=== PATIENT | female | born 1950 | race Caucasian/White ===

== ENCOUNTER → 2020-10-04 08:36 | Outpatient (CLI) | payer MEDICARE, SELFPAY ==
--- NOTE | ~2020-10-04 | XR_ITS ---
EXAMINATION: XR thoracic spine 3V EXAM DATE: 10/04/2020 09:08 INDICATION: Low back pain. Assess pain pump catheter tip. TECHNIQUE: Frontal and lateral projections of the thoracic spine as well as lateral swimmers projecti on of the upper thoracic spine for interpretation. There is no prior study for comparison. FINDINGS: There is 2 mm metallic focus projecting over the spinal canal, indicated on both frontal a nd lateral projections at the T9 level. This is most likely at the tip of the pain pump, although the catheter tubing is not well-visualized. . There are sternotomy wires. Mild to moderate thoracic di sc disease. Paraspinal soft tissue is unremarkable. IMPRESSION: Probable identification pain pump tip at T9 level. Mild to moderate thoracic spondylosis . Reviewed, dictated and finalized at location A. 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 Mild to moderat e thoracic spondylosis.
--- NOTE | ~2020-10-04 | XR_ITS ---
EXAMINATION: XR lumbar spine 2-3V EXAM DATE: 10/04/2020 09:08 INDICATION: Low back pain. Assess pain pump tip level. TECHNIQUE: Lumber spine frontal, lateral, lateral L5-S1 projections for interpretation. There is no prior study for comparison. FINDINGS: There is moderate lumbar dextroscoliosis. The L1 and L2 vertebral bodies are partially fus ed and have lost more than half of their heights, more on the right side, causing or contributing to patient's dextroscoliosis. Mild diffuse loss of other lumbar vertebral body heights. Moderate diffuse lumbar disc disease. Moderate aortic arterial sclerosis. Paraspinal soft tissue is unremarkable. The re is advanced lumbar facet arthropathy. Sacroiliac lines appear intact. Pain pump catheter identified over the right side of the subcutaneous tissues. Metallic marker at the catheter tip is at T9 level, has been indicated for your review. IMPRESSION: 1. Partially fused, and compressed L1-2 vertebral bodies causing or contributing to moderate dextros coliosis. 2. Advanced lumbar facet arthropathy. 3. Moderate disc disease. 4. Pain pump tip marker at T9 level. Reviewed, dictated and finalized at location A. ILATION WORKER IMPRESSION: 1. Partially fused, and compressed L1-2 vertebral bodies causing or contributi ng to moderate dextroscoliosis. 2. Advanced lumbar facet arthropathy. 3. Moderate disc disease. 4. Pain pump tip marker at T9 level.
== END ==
PROVIDERS: Visit Provider Nurse Practitioner Family
DX: M54.5 Low back pain (principal); M41.86 Other forms of scoliosis, lumbar region; M43.06 Spondylolysis, lumbar region; M51.9 Unspecified thoracic, thoracolumbar and lumbosacral intervertebral disc disorder; Z97.8 Presence of other specified devices; M47.814 Spondylosis without myelopathy or radiculopathy, thoracic region
CPT/HCPCS: 72072; 72100

== ENCOUNTER → 2020-11-15 07:52 | Outpatient (CLI) | payer MEDICARE, SELFPAY ==
--- NOTE | ~2020-11-15 | MR_ITS ---
EXAMINATION: MR lumbar spine wo con EXAM DATE: 11/15/2020 08:42 INDICATION: Low back pain. Bilateral leg weakness. Symptoms for years. Pain pump. TECHNIQUE: Multi-sequential, multiplanar MR images of the lumbar spine were obtained without contrast . Sagittal T1, T2, T2 fat saturation images. Axial T2 weighted images. Correlation is made to lumba r x-ray 10/04/2020. FINDINGS: There is pseudoarthrosis of the L1 and L2 vertebral bodies with moderate to severe loss of the vertebral body heights at the L1-2 endplates. There is edema within both of these vertebral kaleb s. Focal region of signal within the widened disc space is most likely gas which should exclude acute discitis/osteomyelitis. These changes may have been sequela from prior episode of treated discitis/o steomyelitis. There is no evidence of paraspinal fluid collection. The posterior aspects of these joaquina tebral L1-2 endplates do project into the spinal canal, contributing to the moderate to severe centra l canal stenosis. Moderate to severe disc disease at T11-12, L2-3 and L3-4, moderate at the 2 levels below and L1-2. Co nus medullaris is being indented anteriorly from disc bulge at T11-12, with mild to moderate central canal stenosis at that level. No conus medullaris edema suspected, no acute cord compression. There i s 3 mm retrolisthesis L2 on L3 and L3 on L4. There is 5 mm anterolisthesis L5 on S1. Mild to moderate thoracolumbar scoliosis. Level by level evaluation: T11-12: There is a moderate diffuse disc bulge. Facet arthropathy: Mild to moderate. Neural foraminal stenosis: Moderate left, mild to moderate right. Central canal stenosis: Mild to moderate. T12-L1: There is a mild to moderate diffuse disc bulge. Facet arthropathy: Moderate. Neural foraminal stenosis: Moderate bilateral. Central canal stenosis: Mild to moderate. L1-L2: Endplates project posteriorly. Facet arthropathy: Moderate. Neural foraminal stenosis: Severe right, moderate to severe left. Central canal stenosis: Severe, nerve root crowding. L2-L3: There is a moderate diffuse disc bulge. Facet arthropathy: Mild to moderate. Neural foraminal stenosis: Moderate left, mild to moderate right. Central canal stenosis: Moderate. L3-L4: There is a mild to moderate diffuse disc bulge. Facet arthropathy: Moderate. Neural foraminal stenosis: Moderate left, mild to moderate right. Central canal stenosis: Moderate. L4-L5: There is a moderate diffuse disc bulge. Facet arthropathy: Moderate to severe. Neural foraminal stenosis: Moderate bilateral. Central canal stenosis: Moderate to severe. L5-S1: There is a moderate diffuse disc bulge. Facet arthropathy: Moderate to severe. Neural foraminal stenosis: Severe right, moderate to severe left. Central canal stenosis: Moderate. IMPRESSION: 1. L1-2 appearance most likely severe arthritis, could be from prior episode of discitis/osteomyelit is with resultant pseudoarthrosis. Disc space gas should exclude acute infection. Severe central lily l stenosis at that level. 2. Less severe spondylosis other levels. Reviewed, dictated and finalized at location A. IMPRESSION: 1. L1-2 appearance most likely severe arthritis, could be from prior episode o f discitis/osteomyelitis with resultant pseudoarthrosis. Disc space gas should exclude acute infection. Severe central canal stenosis at that level. 2. Less severe spondylosis other levels.
== END ==
PROVIDERS: Visit Provider Nurse Practitioner Family
DX: M54.5 Low back pain (principal); M47.816 Spondylosis without myelopathy or radiculopathy, lumbar region
CPT/HCPCS: 72148

== ENCOUNTER → 2021-05-28 11:08 | Outpatient (CLI) | payer MEDICARE, SELFPAY ==
--- NOTE | ~2021-05-28 | XR_ITS ---
EXAMINATION: XR knee RT 2V EXAM DATE: 05/28/2021 11:30 INDICATION: Pain in left knee, pain in right knee. TECHNIQUE: Frontal and lateral projections of the right knee. Correlation is made to contralateral k nee same date. FINDINGS: There is severe patellofemoral and tibial tibiofemoral compartment primary osteoarthritis. The lateral compartment joint space appears much more preserved. This is likely contributing to the varus deformity, shape of the knee. There are no acute fractures identified. Scattered popliteal, dis laura femoral arterial sclerosis. IMPRESSION: 1. Severe right knee osteoarthritis. 2. Genu varum. Reviewed, dictated and finalized at location B.
--- NOTE | ~2021-05-28 | XR_ITS ---
EXAMINATION: XR knee LT 2V EXAM DATE: 05/28/2021 11:30 INDICATION: Pain in left knee, pain in right knee TECHNIQUE: Frontal and lateral projections of the left knee obtained standing. Correlation is made t o contralateral knee same date. FINDINGS: There is moderate to severe patellofemoral and medial tibial femoral compartment primary os teoarthritis. There is also 5 to 10 mm of lateral displacement of the femoral condyles with respect to the tibial plateau indicating laxity of the joint capsule. There is varus deformity at the knee mona int. There may be small joint effusion. There are no acute fractures identified. Scattered popliteal arterial sclerosis. IMPRESSION: 1. Moderate to severe left knee osteoarthritis. 2. Capsular laxity with mild lateral subluxation tibial plateau with respect to the femoral condyles . 3. Genu varum. Reviewed, dictated and finalized at location B. IMPRESSION: 1. Moderate to severe left knee osteoarthritis. 2. Capsular laxity with mild lateral subluxation tibial plateau with respect t o the femoral condyles. 3. Genu varum.
== END ==
PROVIDERS: PCP Nurse Practitioner Gerontology; Visit Provider Nurse Practitioner Family
DX: M25.562 Pain in left knee (principal); M25.561 Pain in right knee; M17.0 Bilateral primary osteoarthritis of knee; M21.162 Varus deformity, not elsewhere classified, left knee; M21.161 Varus deformity, not elsewhere classified, right knee
CPT/HCPCS: 73560

== ENCOUNTER → 2022-11-06 08:46 | Outpatient (CLI) | payer MEDICARE, SELFPAY ==
--- NOTE | ~2022-11-06 | MR_ITS ---
EXAMINATION: MR lumbar spine wo con DATE: 11/06/2022 09:27 INDICATION: Lumbar radiculopathy. Chronic low back pain. TECHNIQUE: Magnetic resonance imaging (MRI) of the lumbar spine was performed without intravenous con trast. COMPARISON: Lumbar spine MRI 11/15/2020, radiographs 10/04/20 FINDINGS: There is 19 degrees levoscoliosis of thoracolumbar spine and 24 degrees dextroscoliosis of lumbar spine. There is interbody fusion and focal kyphosis at L1-L2 with bone volume loss. There is w idening of the disc space at T12-L1 with obliteration of the disc and fluid in the disc space. There is 4 mm anterolisthesis of L5 on S1. There is severely decreased disc height at T11-T12, L2-L3, and L 3-L4, moderately decreased disc at L4-L5, and severely decreased disc height at L5-S1 with endplate r emodeling. There is ligamentum flavum hypertrophy at the disc levels in lumbar spine. The following d isc levels are specifically discussed: T11-T12: The disc is bulging. There is mild bilateral facet joint osteoarthritis. There is moderate b ilateral neural foraminal stenosis. There is moderate central canal stenosis with indentation of the spinal cord. T12-L1: The disc is bulging. There is severe bilateral facet joint osteoarthritis. There is severe bi lateral neural foraminal stenosis. There is moderate central canal stenosis. L1-L2: There is severe bilateral facet joint osteoarthritis. There is severe right and moderate left neural foraminal stenosis. There is severe central canal stenosis. L2-L3: The disc is bulging and has an annular fissure. There is severe bilateral facet joint osteoart hritis. There is mild right and moderate left neural foraminal stenosis. There is mild central canal stenosis. L3-L4: The disc is bulging and has an annular fissure. There is severe bilateral facet joint osteoart hritis. There is mild right and moderate left neural foraminal stenosis. There is mild central canal stenosis. L4-L5: The disc is bulging and has an annular fissure. There is severe bilateral facet joint osteoart hritis. There is moderate bilateral neural foraminal stenosis. There is mild central canal stenosis. L5-S1: The disc is bulging and has an annular fissure. There is severe bilateral facet joint osteoart hritis. There is moderate right and mild left neural foraminal stenosis. There is mild central canal stenosis. IMPRESSION: 1. Severe lumbar and lower thoracic spondylosis. 2. Pseudoarthrosis at T12-L1. 3. Scoliosis. Reviewed, dictated and finalized at location A.
== END ==
PROVIDERS: Visit Provider Nurse Practitioner Family
DX: M47.26 Other spondylosis with radiculopathy, lumbar region (principal); M47.814 Spondylosis without myelopathy or radiculopathy, thoracic region; M41.9 Scoliosis, unspecified
CPT/HCPCS: 72148

== ENCOUNTER 2024-08-16 10:07 | Outpatient (CLI) | payer MEDICARE, SELFPAY ==
--- NOTE | ~2024-08-16 | XR_ITS ---
[id number] Ordering provider: Emily Mcfarland, AUTO ENGINE MECHANIC-C History: . L knee pain . Comparison: None. FINDINGS: BONES: No acute fracture or dislocation. JOINT SPACES: Narrowing of the medial compartment. Marginal osteophytes in the patella with narrowing of the patellofemoral joint. SOFT TISSUES: Vascular calcifications. Minimal fluid in the suprapatellar bursa. IMPRESSION: No acute osseous abnormality left knee. Severe osteoarthritic changes. Reviewed, dictated and finalized at location A. NGER UP SOLDERING MACHINE
--- NOTE | ~2024-08-16 | XR_ITS ---
EXAMINATION: XR ankle LT 2V, XR foot LT 2V DATE: 08/16/2024 11:22 INDICATION: Left foot and ankle pain post fall TECHNIQUE: 1. Anteroposterior and lateral view of the left ankle were obtained. 2. Dorsoplantar and lateral views of the left foot were obtained. COMPARISON: None. FINDINGS: Diffuse osteopenia. Transverse fractures across the distal left fibular metadiaphysis and distal left tibial metaphysis. Fibular fracture remains nondisplaced with 10-15 degrees medial and posterior ang ulation. One-2 cortical widths posterior medial displacement and similar degree of mild posterior and medial angulation of the tibial fracture. Minimally displaced extra articular fractures cross the neck of the fifth metatarsal and across the b ase of the fifth proximal phalanx. There is mild medial angulation of the metatarsal neck fracture. N o other fractures identified at the left foot or ankle although sensitivity for nondisplaced fracture is mildly decreased by osteopenia. There is mild polyarticular osteoarthritis involving the left ank le and majority of the joints the left foot. Chondrocalcinosis along the head of the talus. Soft tiss ue swelling about the left ankle and lateral to the fifth metatarsophalangeal joint. No ankle joint e ffusion. Scattered vascular calcifications. IMPRESSION: 1. Mild posterior medial angulation of extra articular fractures of the distal left tibia and fibula. 2. Minimally displaced extra articular fracture at the neck of the fifth metatarsal and base of the f ifth proximal phalanx. Reviewed, dictated and finalized at location B. WRINGER IMPRESSION: 1. Mild posterior medial angulation of extra articular fractures of the distal left tibia and fibula. 2. Minimally displaced extra articular fracture at the neck of the fifth metata rsal and base of the fifth proximal phalanx.
== END 2024-08-16 10:08 | disposition home or self-care (01) ==
PROVIDERS: Visit Provider Nurse Practitioner Family
DX: M17.12 Unilateral primary osteoarthritis, left knee (principal); S82.392A Other fracture of lower end of left tibia, initial encounter for closed fracture; S82.832A Other fracture of upper and lower end of left fibula, initial encounter for closed fracture; S92.352A Displaced fracture of fifth metatarsal bone, left foot, initial encounter for closed fracture; S92.512A Displaced fracture of proximal phalanx of left lesser toe(s), initial encounter for closed fracture; W19.XXXA Unspecified fall, initial encounter
CPT/HCPCS: 73560; 73600; 73620